=== PATIENT | female | born 1955 | race American Indian/Alaskan Native ===

== ENCOUNTER 2018-03-22 12:37 | Outpatient (CLI) | payer OTHER ==
[2018-03-22 12:56] LABS: Hematocrit 40.3 % (30.3-42.9); Mean Corpuscular HGB Conc 32 % (30-34); Mean Corpuscular Hemoglobin 32 pg (28-32); Mean Corpuscular Volume 98 fl (79-97); Platelet Count 303 K/mm3 (140-440); Red Blood Count 4.11 M/mm3 (3.65-5.03); Red Cell Distribution Width 12.9 % (13.2-15.2)
[2018-03-22 13:11] LABS: Alanine Aminotransferase 20 units/L (7-56); Albumin 3.8 g/dL (3.9-5); BUN/Creatinine Ratio 22; Blood Urea Nitrogen 13 mg/dL (7-17); Calcium 8.8 mg/dL (8.4-10.2); Hemolysis Index 3
[2018-03-22 13:17] LABS: Erythrocyte Sedimentation Rate 12 mm/Hr (0-20)
== END 2018-03-22 12:38 | disposition home or self-care (01) ==
LOC: LAB 12:37
PROVIDERS: ATTEND Specialist
DX: R51 Headache (principal)
CPT/HCPCS: 36415; 80053; 85027; 85652